=== PATIENT | male | born 1960 | race Caucasian/White ===

== ENCOUNTER 2021-11-27 13:07 | Emergency (ER) | payer OTHER ==
[2021-11-27] MEDS ORDERED: VISTARIL 50 MG50 MG PO (15:07)
== END 2021-11-27 15:10 | disposition home or self-care (01) ==
LOC: ER1 13:07
DX: F43.23 Adjustment disorder with mixed anxiety and depressed mood (principal); J44.9 Chronic obstructive pulmonary disease, unspecified; I10 Essential (primary) hypertension
CPT/HCPCS: 99283